=== PATIENT | male | born 1980 | race Two or more races ===

== ENCOUNTER 2020-04-30 17:04 | Emergency (ER) | payer SELFPAY ==
[~2020-04-30] VITALS: Ht 177.8 cm; Wt 119.7 kg
--- NOTE | 2020-04-30 17:29 | NUR ---
PT CAME IN CO FATIGUE, CHILLS, BODY ACHES, OGLESBY, AND DRY COUGH SINCE YESTERDAY. PT REPORTS TESTING POSITIVE FOR COVID IN Feb. PT RESTING IN [facility]. CONNECTED TO ALL MONITORING EQUIPMENT. AWAITING MD ORDERS AT THIS TIME
[2020-04-30] MEDS ORDERED: SODIUM CHLORIDE FLUSH 10ML SYR IVF ONE (18:30)
[2020-04-30] MEDS ORDERED: SODIUM CHLORIDE 0.9% 1,000ML IVBOLUS ONE (18:30)
[2020-04-30] MEDS ORDERED: HYDROmorphone 1 MG/ML, 1ML INJ IVPush PRN (18:30)
[2020-04-30 19:11] LABS: BASOPHILS % (AUTO) 0 % (0-1); EOSINOPHILS % (AUTO) 1 % (1-7); LYMPHOCYTES % (AUTO) 9 % (22-44); MEAN CORPUSCULAR HEMOGLOBIN 30.7 pg (27.5-34.5); MEAN CORPUSCULAR HGB CONC 34.5 g/dL (33.2-36.2); MEAN PLATELET VOLUME 7.7 fL (7.4-10.4); MONOCYTES % (AUTO) 10 % (2-9); NEUTROPHILS % (AUTO) 80 % (42-75); PLATELET COUNT 235 x10^3/uL (130-400); RED BLOOD COUNT 5.19 x10^6/uL (4.38-5.82); RED CELL DISTRIBUTION WIDTH 14.1 % (9.4-14.8)
[2020-04-30 19:14] LABS: ALANINE AMINOTRANSFERASE 73 U/L (12-78); ALBUMIN 3.9 g/dL (3.4-5.0); ANION GAP 6 mmol/L (5-15); CALCIUM 8.7 mg/dL (8.5-10.1); CHLORIDE 108 mmol/L (98-107)
[2020-04-30 19:16] LABS: ALKALINE PHOSPHATASE 78 U/L (45-117); BILIRUBIN,TOTAL 1.5 mg/dL (0.2-1.0); TOTAL PROTEIN 7.9 g/dL (6.4-8.2)
[2020-04-30 19:18] LABS: MD NO
[2020-04-30] MEDS ORDERED: HYDROmorphone 1 MG/ML, 1ML INJ ONE (19:21)
--- NOTE | 2020-04-30 19:29 | NUR ---
PATIENT RESTING IN BED IN NO RESP. DISTRESS. MILD FEVER. PATIENT STATES HE TOOK MOTRIN AROUND 1600 TODAY AND TYLENOL BEFORE THAT. WILL RECHECK THIS PERIODICALLY AND NOTIFY MD IF WORSENS. DILAUDID GIVEN FOR BACK PAIN PER ORDER. IVF STARTED. PATIENT AWARE OF NEEDING UA. URINAL PLACED AT BEDSIDE IN REACH. CALL NG IN REACH. BEDSIDE RAILS RAISED. PATIENT EDUCATED ON EFFECTS POSSIBLE WITH DILAUDID. WILL CONTINUE TO MONITOR. SAFETY MAINTAINED
--- NOTE | 2020-04-30 19:59 | NUR ---
PATIENT REPORTS PAIN HAS DECREASED SINCE PAIN MEDICATION BUT HE IS NOW FEELING NAUSEOUS AND DIAPHORETIC. VS REMAIN STABLE AND RN HAD SUSPICION THAT PATIENT BROKE FEVER. ORAL TEMP TAKEN AND 98.9. HE REQUESTED ICE CHIPS AND THESE WERE PROVIDED. RN ASKED AGAIN FOR PATIENT TO PROVIDE URINE SAMPLE. RESTING IN BED. WILL CONTINUE TO MONITOR
[2020-04-30 20:00] LABS: RAPID INFLUENZA A Negative (Negative); RAPID INFLUENZA B Negative (Negative)
[2020-04-30] MEDS ORDERED: AZITHROMYCIN 500 MG in SODIUM CHLORIDE 0.9% 250 ML IV ONE (20:00)
[2020-04-30] MEDS ORDERED: ONDANSETRON 2MG/ML, 2ML IVPush ONE (20:30)
[2020-04-30] MEDS ORDERED: ONDANSETRON 2MG/ML, 2ML ONE (20:32)
[2020-04-30 22:16] LABS: MICROSCOPIC INDICATED
[2020-04-30 22:43] VITALS: BP 141/77
--- NOTE | 2020-04-30 22:45 | NUR ---
DISCHARGE INSTRUCTIONS REVIEWED WITH PATIENT. NO FURTHER QUESTIONS. HE REQUESTED WORK NOTE AND THIS WAS GIVEN TO HIM D/T COVID TEST PENDING. COVID EDUCATION PATIENT HAND OUT PROVIDED TO PATIENT WELL. IN NAD ON DC. AMBULATED TO LOBBY WITH STEADY GAIT. IS HIS RIDE HOME AND HE STATED SHE WAS WAITING OUT IN THE PARKING LOT FOR HIM. IV REMOVED PER DC PROTOCOL. PRESCRIPTION HANDED DIRECTLY TO PATIENT. ALL PERSONAL BELONGINGS WITH PATIENT ON DISCHARGE
== END 2020-04-30 22:47 | disposition home or self-care (01) ==
LOC: ED 22:41
DX: U07.1 COVID-19 (principal); J18.9 Pneumonia, unspecified organism; R00.0 Tachycardia, unspecified
CPT/HCPCS: 36415; 71045; 80053; 81001; 83605; 85025; 87040; 87400; 87635; 96361; 96365; 96366; 96375; 99285; J0456; J1170; J2405; J7030; J7050

== ENCOUNTER 2020-06-10 12:40 | Emergency (ER) | payer OTHER ==
[~2020-06-10] VITALS: Ht 177.8 cm; Wt 119.7 kg
[2020-06-10] MEDS ORDERED: KETOROLAC 30 MG/1 ML ONE (13:26)
[2020-06-10 13:27] LABS: BASOPHILS % (AUTO) 0 % (0-1); EOSINOPHILS % (AUTO) 2 % (1-7); LYMPHOCYTES % (AUTO) 25 % (22-44); MEAN CORPUSCULAR HGB CONC 34.8 g/dL (33.2-36.2); MEAN PLATELET VOLUME 7.7 fL (7.4-10.4); MONOCYTES % (AUTO) 10 % (2-9); NEUTROPHILS % (AUTO) 63 % (42-75); PLATELET COUNT 320 x10^3/uL (130-400); RED BLOOD COUNT 5.32 x10^6/uL (4.38-5.82); RED CELL DISTRIBUTION WIDTH 14.7 % (9.4-14.8)
[2020-06-10] MEDS ORDERED: ONDANSETRON 2MG/ML, 2ML ONE (13:27)
[2020-06-10] MEDS ORDERED: HYDROmorphone 2 MG/ML, 1ML IVPush PRN (13:30)
[2020-06-10] MEDS ORDERED: SODIUM CHLORIDE 0.9% 1,000ML IV ONE (13:30)
[2020-06-10] MEDS ORDERED: SODIUM CHLORIDE FLUSH 10ML SYR IVF ONE (13:30)
[2020-06-10] MEDS ORDERED: KETOROLAC 30 MG/1 ML IVPush ONE (13:30)
[2020-06-10] MEDS ORDERED: ONDANSETRON 2MG/ML, 2ML IVPush ONE (13:30)
[2020-06-10 13:37] LABS: ALANINE AMINOTRANSFERASE 93 U/L (12-78); ALBUMIN 3.9 g/dL (3.4-5.0); ANION GAP 11 mmol/L (5-15); CALCIUM 8.8 mg/dL (8.5-10.1); CHLORIDE 107 mmol/L (98-107); CREATININE 1.15 mg/dL (0.7-1.3)
[2020-06-10 13:39] LABS: ALKALINE PHOSPHATASE 87 U/L (45-117); BILIRUBIN,TOTAL 1.4 mg/dL (0.2-1.0)
[2020-06-10 13:40] LABS: MD NO
--- NOTE | 2020-06-10 13:42 | NUR ---
pt in bed medicated, refused dilaudid. ivf running
[2020-06-10 13:52] LABS: MICROSCOPIC AUTO
--- NOTE | 2020-06-10 15:07 | NUR ---
PT EC'VD DISCHARGE INSTRUCTIONS AND EDUCATION. PT HAD NO FURTHER QUESTIONS. PT AMBULATED TO DC AREA, STEADY GAIT.
[2020-06-10 15:09] VITALS: BP 150/94
== END 2020-06-10 15:12 | disposition home or self-care (01) ==
LOC: ED 13:53
DX: N13.2 Hydronephrosis with renal and ureteral calculous obstruction (principal); N23 Unspecified renal colic
CPT/HCPCS: 36415; 74176; 80053; 81001; 85025; 87086; 96361; 96374; 96375; 99284; J1885; J2405; J7030